=== PATIENT | female | born 1980 | race Caucasian/White ===

== ENCOUNTER 2021-02-06 16:15 | Observation (INO) | payer OTHER ==
[2021-02-06] MEDS ORDERED: Betamethasone Acetate/Betamethasone Sod Phosphate 30 MG/5 ML MDV IM ONE (17:14)
[2021-02-06 18:12] LABS: BLOOD UREA NITROGEN,BUN 17 mg/dL (7.0-18.0); CARBON DIOXIDE,CO2 23.9 mmol/L (21.0-32.0); CHLORIDE,CL 105 mmol/L (98-107); GLUCOSE RANDOM 94 mg/dL (74-106); POTASSIUM,K 3.8 mmol/L (3.5-5.1); SODIUM,NA 139 mmol/L (136-145)
[2021-02-06] MEDS ORDERED: Sodium Chloride 0.9% 10 ML SDV IV PRN (19:07)
[2021-02-06] MEDS ORDERED: Sodium Chloride 0.9% 2.5 ML Syringe FLUSH PRN (19:07)
[2021-02-06] MEDS ORDERED: Sodium Chloride 0.9% 10 ML Syringe FLUSH PRN (19:07)
[2021-02-06] MEDS ORDERED: NIFEdipine 30 MG Tab.ER PO ONE (19:13)
--- NOTE | 2021-02-06 21:02 | US ---
INDICATION: Pre-eclampsia. Check growth, position, biophysical profile. TECHNIQUE: Ultrasound OB pelvis transabdominal. Real-time yan-scale imaging of the fetus was performed. COMPARISON: None. FINDINGS: Sonographic imaging demonstrates a single living intrauterine gestation. heart rate: 142 bpm Orientation: cephalic Placenta: Anterior without evidence of placenta previa or abruption on submitted images. Scattered venous lakes. Amniotic fluid: Subjectively normal with single deepest vertical pocket measuring 3.9 cm. Cervix: Cervical length not measured. BIOPHYSICAL PROFILE: Scores for each category is listed below on a scale of 0-2: -Amniotic fluid: 2 -Flexion/Extension: 2 - Motion: 2 -Breathing Movement: 0 Right anterior intramural fibroid, size 2.1 cm. Biparietal diameter: 7.8 cm, 37 weeks 4 days. Head circumference: 28.9 cm, 31 weeks 6 days Abdominal circumference: 28.9 cm, 33 weeks 0 days Femur length: 6.1 cm, 31 weeks 4 days Estimated weight 1927 grams, corresponding to the 94th percentile. IMPRESSION: 1. Single viable intrauterine with a biophysical profile score of 6 out of a maximum of 8. 2. Clinical gestational age based on LMP 30 weeks 2 days with current ultrasound gestational age 32 weeks 0 days. 3. Estimated weight at the 94th percentile. 4. Normal amniotic fluid. 5. 2.1 cm uterine fibroid. Dictated by Eliu James MD @ 02/06/2021 9:01:[address] Eliu James @ Feb 06 2021 9:01PM
--- NOTE | 2021-02-06 21:29 | HP ---
DATE OF : 1980 PRIMARY CARE PHYSICIAN: Demi Maynard MD CHIEF COMPLAINT: Swelling. HISTORY OF PRESENT ILLNESS: This is a 40-year-old female. She is G1, P0. She presents at 30 weeks and 1 day gestation with a mild headache and sudden increase in swelling. She does not feel normal. She presents to Labor and Delivery for evaluation with blood pressures ranging from 142/81 to 164/97. She denies severe headache or visual changes. She reports normal movement. She has had uncomplicated care except for advanced maternal age and the finding of choroid plexus cyst on screening ultrasound. She is blood type A negative, rubella immune. She did have noninvasive testing which was normal. She has been taking 81 mg aspirin for prevention of preeclampsia. PAST MEDICAL HISTORY: Significant for occasional heart palpitations. PAST SURGICAL HISTORY: In 2005, she had wisdom teeth extracted. GYNECOLOGIC HISTORY: She has no history of abnormal Pap smears. Prior to , she had regular periods. SOCIAL HISTORY: She denies use of tobacco, alcohol, or street drugs. She is an general store manager. She is single, in 2018, currently in a relationship. FAMILY HISTORY: Significant for mother alive with hypertension. Father with heart attack, addiction, and withdrawal. Siblings alive. Maternal grandmother with dementia. Paternal grandfather . Paternal grandmother , emphysema. REVIEW OF SYSTEMS: Positive for mild headache. No visual changes. She denies shortness of breath, chest pain, dyspnea on exertion, palpitations, nausea, vomiting, or diarrhea. She reports good movement. She reports increased swelling as noted in HPI. MEDICATIONS: 1. Prilosec 20 mg daily. 2. 81 mg aspirin daily. 3. vitamin daily. 4. Calcium daily. 5. Stool softener. PHYSICAL EXAMINATION: GENERAL: She is alert and oriented, in no acute distress. VITAL SIGNS: Blood pressures range 142/81 to 164/97. NECK: Supple without lymphadenopathy or thyromegaly. LUNGS: Clear bilaterally. CARDIOVASCULAR: Regular rate without murmur. ABDOMEN: Soft, gravid, and nontender. EXTREMITIES: Show 2+ edema. Reflexes are 1+ and equal without clonus. DIAGNOSTIC DATA: heart tones are 140s, moderate variability with accelerations present. There are no contractions on toco. Laboratory studies include hemoglobin 12.0, hematocrit 35.5, and platelets 147. Protein creatinine ratio 0.2. Uric acid 6.8. AST 16 and ALT 20. ASSESSMENT AND PLAN: 30-1/7 week intrauterine with hypertension. She has been normotensive to this point in the . We will admit with serial laboratory studies. Start betamethasone and proceed with Procardia. I avoided a beta castro due to her low heart rate of 50. She will receive thromboembolic prophylaxis. If she develops any symptoms of severe preeclampsia, she will be started on magnesium. We will proceed with biophysical profile and estimated weight by ultrasound for assessment of well-being, and serial weights and blood pressures. Anticipated observation of at least 24 hours. If worsening symptoms or uncontrolled hypertension in the severe range, we will transfer. KAROL / GORGE /[id number]
[2021-02-07 05:51] LABS: BLOOD UREA NITROGEN,BUN 20 mg/dL (7.0-18.0); CARBON DIOXIDE,CO2 21.3 mmol/L (21.0-32.0); CHLORIDE,CL 104 mmol/L (98-107); GLUCOSE RANDOM 132 mg/dL (74-106); POTASSIUM,K 4.1 mmol/L (3.5-5.1); SODIUM,NA 137 mmol/L (136-145)
--- NOTE | 2021-02-07 09:19 | PCM.SN.2 ---
- Free Text/Narrative Note: Patient seen at bedside. She was admitted yesterday secondary to elevated BP in severe range. She received Procardia 30mg 0 Steriods 1748 EFW: 4lbs 4oz, 1927g, BP: 132/76 . HR: 53 Platelet this AM is normal A/P 40yo @ 30w3d Gestational hypertension with severe features based on severe range BP Plan Spoke with MFM who recommend transfer today , will start Magnessium for seizure prophylaxis and neuroprotection GBS not done yet Patient informed and accepts plan of care
[2021-02-07] MEDS ORDERED: Magnesium Sulfate/Water 4 GM in Premix Bag 1 BAG IV ONE (09:44)
[2021-02-07] MEDS ORDERED: Calcium Gluconate 10% 1 GM/10 ML SDV IV PRN (09:44)
[2021-02-07] MEDS ORDERED: Magnesium Sulfate/Water 4 GM/100 ML BAG ONE (09:45)
[2021-02-07] MEDS ORDERED: Magnesium Sulfate/Water 20 GM/500 ML BAG ONE (09:45)
[2021-02-07] MEDS ORDERED: Magnesium Sulfate/Water 20 GM/500 ML BAG IV SCH (10:05)
[2021-02-07] MEDS ORDERED: Sodium Chloride 0.9% 1,000 ML IV SCH (10:15)
--- NOTE | 2021-02-11 11:42 | US ---
EXAM DATE: 02/06/21 PATIENT'S AGE: 40 Patient: EREN GROVER Facility: [facility] Site . Site : 1980 Study: US-OB Pelvis -02/06/2021 8:48:12 PM Ordering Physician: Tano Ruggiero Final Report: INDICATION: Pre-eclampsia. Check growth, position, biophysical profile. TECHNIQUE: Ultrasound OB pelvis transabdominal. Real-time yan-scale imaging of the fetus was performed. COMPARISON: None. FINDINGS: Sonographic imaging demonstrates a single living intrauterine gestation. heart rate: 142 bpm Orientation: cephalic Placenta: Anterior without evidence of placenta previa or abruption on submitted images. Scattered venous lakes. Amniotic fluid: Subjectively normal with single deepest vertical pocket measuring 3.9 cm. Cervix: Cervical length not measured. BIOPHYSICAL PROFILE: Scores for each category is listed below on a scale of 0-2: -Amniotic fluid: 2 -Flexion/Extension: 2 - Motion: 2 -Breathing Movement: 0 Right anterior intramural fibroid, size 2.1 cm. Biparietal diameter: 7.8 cm, 37 weeks 4 days. Head circumference: 28.9 cm, 31 weeks 6 days Abdominal circumference: 28.9 cm, 33 weeks 0 days Femur length: 6.1 cm, 31 weeks 4 days Estimated weight 1927 grams, corresponding to the 94th percentile. IMPRESSION: 1. Single viable intrauterine with a biophysical profile score of 6 out of a maximum of 8. 2. Clinical gestational age based on LMP 30 weeks 2 days with current ultrasound gestational age 32 weeks 0 days. 3. Estimated weight at the 94th percentile. 4. Normal amniotic fluid. 5. 2.1 cm uterine fibroid. Dictated by Eliu James MD @ 02/06/2021 9:01:40 PM Signed by: Eliu James MD @02/06/2021 9:01:40 PM (Electronic Signature) Report Signed by Proxy. MICHELE
== END 2021-02-07 10:45 ==
LOC: MW.OBCHECK 16:15 → MW.OB 16:18 → MW.OBCHECK 19:00 → MW.OB 19:06
PROVIDERS: ADMIT Obstetrics & Gynecology; ATTEND Obstetrics & Gynecology
DX: O26.893 Other specified pregnancy related conditions, third trimester (principal); R51.9 Headache, unspecified; O16.3 Unspecified maternal hypertension, third trimester; Z3A.30 30 weeks gestation of pregnancy; Z82.49 Family history of ischemic heart disease and other diseases of the circulatory system; Z79.899 Other long term (current) drug therapy; Z20.822 Contact with and (suspected) exposure to COVID-19
CPT/HCPCS: 36415; 59025; 76815; 76815-26; 76819; 76819-26; 80053; 82570; 83615; 84156; 84550; 85027; 85384; 85610; 85730; 86850; 86870; 86900; 86901; 87653; 96372; 96374; A9270-GY; G0378; J0702; J3475; J7030; U0002

== ENCOUNTER 2021-10-14 10:30 | Emergency (ER) | payer OTHER, MEDICAID ==
[2021-10-14] MEDS ORDERED: Lidocaine/EPINEPHrine/Tetracaine Soln 1 ML TOP ONE (12:15)
[2021-10-14] MEDS ORDERED: Sodium Chloride 0.9% 10 ML Syringe FLUSH PRN (12:16)
[2021-10-14] MEDS ORDERED: Sodium Chloride 0.9% 2.5 ML Syringe FLUSH PRN (12:16)
[2021-10-14] MEDS ORDERED: HYDROmorphone 1 MG/ML Syringe IVPUSH ONE (13:25)
[2021-10-14] MEDS ORDERED: Ondansetron 4 MG/2 ML SDV IVPUSH ONE (13:25)
== END 2021-10-14 14:26 | disposition home or self-care (01) ==
LOC: MW.ED 10:30
DX: N61.1 Abscess of the breast and nipple (principal); Z79.82 Long term (current) use of aspirin; Z79.899 Other long term (current) drug therapy
CPT/HCPCS: 10060; 96374; 96375; 99282; J1170; J2405

== ENCOUNTER 2021-10-15 23:51 | Emergency (ER) | payer OTHER, MEDICAID ==
[2021-10-16] MEDS ORDERED: ceFAZolin 1 GM in Premix Bag 1 BAG IV STA (01:29)
[2021-10-16] MEDS ORDERED: HYDROmorphone 1 MG/ML Syringe IVPUSH ONE (01:29)
[2021-10-16] MEDS ORDERED: Ondansetron 4 MG/2 ML SDV IVPUSH ONE (01:48)
[2021-10-16] MEDS ORDERED: Ondansetron 4 MG/2 ML SDV ONE (01:50)
[2021-10-16] MEDS ORDERED: Lidocaine 2% 5 ML SDV INJECT ONE (02:12)
[2021-10-16 02:21] LABS: BLOOD UREA NITROGEN,BUN 11 mg/dL (7.0-18.0); CARBON DIOXIDE,CO2 25.9 mmol/L (21.0-32.0); CHLORIDE,CL 101 mmol/L (98-107); GLUCOSE RANDOM 96 mg/dL (74-106); POTASSIUM,K 3.7 mmol/L (3.5-5.1); SODIUM,NA 136 mmol/L (136-145)
[2021-10-16] MEDS ORDERED: Lidocaine 1% with EPINEPHrine 1:100,000 20 ML MDV ONE (02:21)
== END 2021-10-16 03:03 | disposition home or self-care (01) ==
LOC: MW.ED 23:51
DX: N61.1 Abscess of the breast and nipple (principal); Z86.16 Personal history of COVID-19
CPT/HCPCS: 10060; 36415; 80053; 85025; 96365; 96375; 99283; J0690; J1170; J2405

== ENCOUNTER 2021-10-21 11:02 | Day surgery (SDC) | payer OTHER, MEDICAID ==
[~2021-10-21 11:02] MED LIST: Bupivacaine 25%/EPINEPHrine/PF 30 ML ONE; Clindamycin Phosphate in D5W 600 MG in Premix Bag 1 BAG IV ONE; Lactated Ringers 1,000 ML IV SCH
[2021-10-21] MEDS ORDERED: Lidocaine 2% 5 ML SDV ONE (11:17)
[2021-10-21] MEDS ORDERED: Midazolam 1 MG/ML 2 ML SDV ONE (11:18)
[2021-10-21] MEDS ORDERED: Propofol 200 MG/20 ML SDV ONE ×2 (11:18→12:18)
== END 2021-10-21 14:18 | disposition home or self-care (01) ==
LOC: MW.SDS 11:02
PROVIDERS: ATTEND Surgery
DX: N61.1 Abscess of the breast and nipple (principal); N64.1 Fat necrosis of breast; E66.9 Obesity, unspecified; K21.9 Gastro-esophageal reflux disease without esophagitis; F17.210 Nicotine dependence, cigarettes, uncomplicated; Z68.32 Body mass index [BMI] 32.0-32.9, adult; Z79.899 Other long term (current) drug therapy
CPT/HCPCS: 19101; 81025; 87070; 87075; 87205; J2250; J2704; J3490; J7120

== ENCOUNTER 2022-01-12 08:10 | Emergency (ER) | payer OTHER, MEDICAID ==
[2022-01-12] MEDS ORDERED: Sodium Chloride 0.9% 10 ML Syringe FLUSH PRN (08:27)
[2022-01-12] MEDS ORDERED: Sodium Chloride 0.9% 2.5 ML Syringe FLUSH PRN (08:27)
[2022-01-12 09:31] LABS: BLOOD UREA NITROGEN,BUN 9 mg/dL (7.0-18.0); CARBON DIOXIDE,CO2 24.4 mmol/L (21.0-32.0); CHLORIDE,CL 102 mmol/L (98-107); GLUCOSE RANDOM 99 mg/dL (74-106); SODIUM,NA 137 mmol/L (136-145)
[2022-01-12 10:35] LABS: C. TRACHOMATIS BY PCR NOT DETECTED; N. GONORRHOEAE BY PCR NOT DETECTED
== END 2022-01-12 11:06 | disposition home or self-care (01) ==
LOC: MW.ED 08:10
DX: O03.9 Complete or unspecified spontaneous abortion without complication (principal); R10.31 Right lower quadrant pain; R10.32 Left lower quadrant pain; I10 Essential (primary) hypertension; E66.9 Obesity, unspecified; Z68.36 Body mass index [BMI] 36.0-36.9, adult; Z86.16 Personal history of COVID-19; Z3A.10 10 weeks gestation of pregnancy
CPT/HCPCS: 36415; 76817; 76817-26; 80053; 81001; 84702; 85025; 86850; 86900; 86901; 87480; 87491; 87510; 87591; 87660; 99284-25; J2790

== ENCOUNTER 2022-01-12 19:02 | Emergency (ER) | payer OTHER, MEDICAID ==
[2022-01-12] MEDS ORDERED: Methylergonovine 0.2 MG Tab PO ONE ×4 (19:19→19:20)
== END 2022-01-12 20:22 | disposition home or self-care (01) ==
LOC: MW.ED 19:02
DX: O03.9 Complete or unspecified spontaneous abortion without complication (principal)
CPT/HCPCS: 99283; A9270

== ENCOUNTER 2022-07-30 21:27 | Emergency (ER) | payer OTHER, MEDICAID ==
[2022-07-30] MEDS ORDERED: Sodium Chloride 0.9% 2.5 ML Syringe FLUSH PRN (23:37)
[2022-07-30] MEDS ORDERED: Sodium Chloride 0.9% 1,000 ML IV ONE (23:37)
[2022-07-30] MEDS ORDERED: Sodium Chloride 0.9% 10 ML Syringe FLUSH PRN (23:37)
[2022-07-30] MEDS ORDERED: Dicyclomine 10 MG Cap PO ONE (23:37)
[2022-07-30] MEDS ORDERED: Ketorolac 30 MG/ML SDV IVPUSH ONE (23:37)
[2022-07-30] MEDS ORDERED: Ondansetron 4 MG/2 ML SDV IVPUSH ONE (23:37)
== END 2022-07-31 00:50 | disposition left against medical advice (07) ==
LOC: MW.ED 21:27
DX: Z53.21 Procedure and treatment not carried out due to patient leaving prior to being seen by health care provider (principal)
CPT/HCPCS: 76705; 76705-26

== ENCOUNTER 2022-08-03 12:24 | Emergency (ER) | payer OTHER, MEDICAID ==
[2022-08-03] MEDS ORDERED: Morphine 4 MG/ML Syringe IVPUSH STA (14:09)
[2022-08-03] MEDS ORDERED: Lactated Ringers 1,000 ML IV STA ×2 (14:09→16:50)
[2022-08-03] MEDS ORDERED: Ondansetron 4 MG/2 ML SDV IVPUSH ONE (14:09)
[2022-08-03] MEDS ORDERED: Alum Hydro/Mag Hydro/Simeth XS 15 ML, Lidocaine 2% 5 ML PO ONE ×2 (14:39)
[2022-08-03 14:55] LABS: POTASSIUM,K 3.9 mmol/L (3.5-5.1)
[2022-08-03] MEDS ORDERED: Iopamidol 755 Mg/ML 100 ML Bottle IVPUSH ONE (15:54)
[2022-08-03] MEDS ORDERED: cefTRIAXone 2 GM in Premix Bag 1 BAG IV STA (16:32)
== END 2022-08-03 20:10 ==
LOC: MW.ED 12:24
DX: K80.50 Calculus of bile duct without cholangitis or cholecystitis without obstruction (principal); F17.210 Nicotine dependence, cigarettes, uncomplicated; E66.9 Obesity, unspecified; Z86.16 Personal history of COVID-19; Z20.822 Contact with and (suspected) exposure to COVID-19; Z68.36 Body mass index [BMI] 36.0-36.9, adult
CPT/HCPCS: 36415; 74177; 80053; 80074; 81001; 82550; 83690; 84702; 85025; 85610; 87635; 93005; 96361; 96365; 96375; 99285; A9270; J0696; J2270; J2405; J7120; Q9967; U0002

== ENCOUNTER 2023-04-13 09:53 | Emergency (ER) | payer MEDICAID, OTHER ==
[2023-04-13 10:13] LABS: APPEARANCE,URINE CLEAR; COLOR,URINE YELLOW
[2023-04-13 10:14] LABS: BASOPHILS PERCENT AUTO 0.3 % (0.0-1.5); BILIRUBIN,URINE NEGATIVE (NEGATIVE); EOSINOPHILS ABSOLUTE AUTO 0.3 K/uL (0.0-0.7); EOSINOPHILS PERCENT AUTO 3.5 % (0.0-7.0); GLUCOSE,URINE NEGATIVE (NEGATIVE); HEMATOCRIT 38.6 % (36.0-46.0); HEMOGLOBIN 12.7 g/dL (12.0-16.0); KETONES,URINE NEGATIVE (NEGATIVE); LEUKOCYTE ESTERASE,URINE SMALL (NEGATIVE); LYMPHOCYTES ABSOLUTE AUTO 1.4 K/uL (0.6-2.4); LYMPHOCYTES PERCENT AUTO 19.1 % (16.0-40.0); MEAN CORPUSCULAR HGB CONC 32.9 g/dL (31.0-37.0); MONOCYTES ABSOLUTE AUTO 0.6 K/uL (0.0-0.8); MONOCYTES PERCENT AUTO 7.6 % (0.0-15.0); NEUTROPHILS ABSOLUTE AUTO 5.2 K/uL (1.4-5.7); NEUTROPHILS PERCENT AUTO 69.5 % (48.0-80.0); NITRITE,URINE NEGATIVE (NEGATIVE); NRBC ABSOLUTE 0 K/uL; OCCULT BLOOD,URINE NEGATIVE (NEGATIVE); PLATELET COUNT,PLT 245 K/uL (150-400); PROTEIN,URINE NEGATIVE (NEGATIVE); RED BLOOD CELL COUNT 4.71 M/uL (4.30-5.90); UROBILINOGEN,URINE 0.2 EU/dL (<2.0)
[2023-04-13] MEDS ORDERED: Ketorolac 30 MG/ML SDV IVPUSH STA (10:15)
[2023-04-13] MEDS ORDERED: Sodium Chloride 0.9% 2.5 ML Syringe FLUSH PRN (10:15)
[2023-04-13] MEDS ORDERED: Sodium Chloride 0.9% 1,000 ML IV STA (10:15)
[2023-04-13] MEDS ORDERED: Sodium Chloride 0.9% 10 ML Syringe FLUSH PRN (10:15)
[2023-04-13 10:37] LABS: BACTERIA,URINE FEW (NEGATIVE); EPITHELIAL CELLS,URINE FEW (NONE-FEW); RBC,URINE 0-2 (0-2/HPF)
[2023-04-13 10:48] LABS: ALBUMIN 3.6 g/dL (3.4-5.0); BILIRUBIN TOTAL 0.4 mg/dL (0.2-1.0); CALCIUM 8.6 mg/dL (8.5-10.1); CREATININE 0.8 mg/dL (0.6-1.0); EST CRCL DRUG DOSING (CG) 92.41 mL/min; POTASSIUM,K 3.8 mmol/L (3.5-5.1); PROTEIN TOTAL,TP 7.3 g/dL (6.4-8.2)
[2023-04-13] MEDS ORDERED: Iopamidol 755 MG/ML 500 ML Multipack Bottle IVPUSH ONE (11:56)
== END 2023-04-13 13:56 | disposition home or self-care (01) ==
LOC: MW.ED 09:53
DX: N30.00 Acute cystitis without hematuria (principal); K59.00 Constipation, unspecified; K43.9 Ventral hernia without obstruction or gangrene; E66.9 Obesity, unspecified; Z68.36 Body mass index [BMI] 36.0-36.9, adult; Z86.16 Personal history of COVID-19; Z90.49 Acquired absence of other specified parts of digestive tract; Z98.890 Other specified postprocedural states
CPT/HCPCS: 36415; 74177; 80053; 81001; 81025; 83690; 85025; 87086; 96361; 96374; 99284; J1885; J3490; J7030; Q9967

== ENCOUNTER 2023-10-16 08:56 | Emergency (ER) | payer BC ==
[2023-10-16] MEDS ORDERED: Sodium Chloride 0.9% 1,000 ML IV ONE (09:30)
[2023-10-16 09:56] LABS: BASOPHILS ABSOLUTE AUTO 0.05 K/uL (0.00-0.20); BASOPHILS PERCENT AUTO 0.6 % (0.0-1.0); EOSINOPHILS ABSOLUTE AUTO 0.31 K/uL (0.00-0.45); EOSINOPHILS PERCENT AUTO 3.9 % (0.0-6.0); HEMOGLOBIN 13.4 g/dL (12.0-16.0); IMMATURE GRAN ABSOLUTE AUTO 0.03 K/uL (0.00-0.05); IMMATURE GRAN PERCENT AUTO 0.4 % (0.0-0.4); LYMPHOCYTES ABSOLUTE AUTO 1.69 K/uL (1.00-4.80); LYMPHOCYTES PERCENT AUTO 21.4 % (24.0-44.0); MEAN CORPUSCULAR HEMOGLOBIN 26.4 pg (28.0-32.0); MEAN CORPUSCULAR HGB CONC 32.7 g/dL (32.0-36.0); MEAN CORPUSCULAR VOLUME 80.9 fL (83.0-99.0); MEAN PLATELET VOLUME 10.2 fL (9.4-12.3); MONOCYTES ABSOLUTE AUTO 0.57 K/uL (0.00-0.80); MONOCYTES PERCENT AUTO 7.2 % (0.0-8.0); NEUTROPHILS ABSOLUTE AUTO 5.24 K/uL (1.80-7.70); NEUTROPHILS PERCENT AUTO 66.5 % (41.0-71.0); PLATELET COUNT,PLT 295 K/uL (150-400); RED BLOOD CELL COUNT 5.07 M/uL (4.10-5.30); WHITE BLOOD CELL COUNT,WBC 7.89 K/uL (3.9-11.3)
[2023-10-16 10:23] LABS: BILIRUBIN TOTAL 0.6 mg/dL (0.2-1.0); CARBON DIOXIDE,CO2 26.5 mmol/L (21.0-32.0); CREATININE 0.8 mg/dL (0.6-1.0); EST CRCL DRUG DOSING (CG) 91.47 mL/min; POTASSIUM,K 4.2 mmol/L (3.5-5.1)
[2023-10-16] MEDS ORDERED: Iopamidol 755 MG/ML 500 ML Multipack Bottle IVPUSH STA (11:08)
[2023-10-16 11:45] LABS: APPEARANCE,URINE CLEAR; BILIRUBIN,URINE NEGATIVE (NEGATIVE); COLOR,URINE YELLOW; GLUCOSE,URINE NEGATIVE (NEGATIVE); KETONES,URINE NEGATIVE (NEGATIVE); LEUKOCYTE ESTERASE,URINE NEGATIVE (NEGATIVE); NITRITE,URINE NEGATIVE (NEGATIVE); OCCULT BLOOD,URINE TRACE-INTACT (NEGATIVE); PH,URINE 6.5 (5.0-8.0); PROTEIN,URINE NEGATIVE (NEGATIVE); UROBILINOGEN,URINE 0.2 EU/dL (<2.0)
[2023-10-16 12:00] LABS: BACTERIA,URINE FEW (NEGATIVE); MUCUS,URINE LIGHT (NONE-MOD); SQUAMOUS EPITHELIAL CELLS,UR MODERATE
[2023-10-16] MEDS ORDERED: Magnesium Citrate Solution 296 ML Bottle PO ONE (12:19)
== END 2023-10-16 13:25 | disposition home or self-care (01) ==
LOC: MW.ED 08:56
DX: K64.9 Unspecified hemorrhoids (principal); K59.00 Constipation, unspecified; F17.210 Nicotine dependence, cigarettes, uncomplicated; E66.9 Obesity, unspecified; Z68.37 Body mass index [BMI] 37.0-37.9, adult
CPT/HCPCS: 36415; 74177; 80053; 81001; 83690; 84703; 85025; 96360; 99284; J7030; Q9967

== ENCOUNTER 2024-04-19 07:58 | Day surgery (SDC) | payer BC ==
[~2024-04-19 07:58] MED LIST changes: -Bupivacaine 25%/EPINEPHrine/PF 30 ML ONE; -Clindamycin Phosphate in D5W 600 MG in Premix Bag 1 BAG IV ONE; -Lactated Ringers 1,000 ML IV SCH; +Sodium Chloride 0.9% 10 ML Syringe FLUSH PRN; +Sodium Chloride 0.9% 2.5 ML Syringe FLUSH PRN; +Sodium Chloride 0.9% 20 ML SDV IV PRN
[2024-04-19] MEDS: Lactated Ringers 1,000 ML IV SCH (08:27)
[2024-04-19] MEDS ORDERED: propofoL 50 ML ONE (08:29)
[2024-04-19] MEDS ORDERED: Lidocaine 2% 5 ML SDV ONE (08:34)
== END 2024-04-19 09:58 | disposition home or self-care (01) ==
LOC: MW.SDS 07:58
PROVIDERS: ATTEND Surgery
DX: K63.5 Polyp of colon (principal); K59.09 Other constipation; K43.9 Ventral hernia without obstruction or gangrene; I10 Essential (primary) hypertension; E66.9 Obesity, unspecified; F17.290 Nicotine dependence, other tobacco product, uncomplicated; Z79.899 Other long term (current) drug therapy; Z79.84 Long term (current) use of oral hypoglycemic drugs; Z68.37 Body mass index [BMI] 37.0-37.9, adult
CPT/HCPCS: 45380; 81025; J2704; J7120; 00811; J3490

== ENCOUNTER 2024-07-08 06:49 | Day surgery (SDC) | payer BC ==
[2024-07-08] MEDS: Lactated Ringers 1,000 ML IV SCH (07:18)
[2024-07-08] MEDS ORDERED: ceFAZolin 1 GM Vial ONE (07:22)
[2024-07-08] MEDS ORDERED: Bupivacaine 0.5% 30 ML SDV ONE (07:22)
[2024-07-08] MEDS ORDERED: Midazolam 1 MG/ML 2 ML SDV ONE (07:42)
[2024-07-08] MEDS ORDERED: fentaNYL 100 MCG/2 ML SDV ONE (07:42)
[2024-07-08] MEDS ORDERED: Propofol 200 MG/20 ML SDV ONE (07:43)
[2024-07-08] MEDS ORDERED: Lidocaine 2% 5 ML SDV ONE (07:43)
[2024-07-08] MEDS ORDERED: Ondansetron 4 MG/2 ML SDV ONE (08:16)
[2024-07-08] MEDS ORDERED: Acetaminophen/HYDROcodone 325-5 MG Tab PO PRN (08:34)
[2024-07-08] MEDS ORDERED: Lactated Ringers 1,000 ML IV SCH (08:45)
[2024-07-08] MEDS ORDERED: traMADol 50 MG Tab ONE (09:27)
[2024-07-08] MEDS: traMADol 50 MG Tab PO ONE (09:30)
== END 2024-07-08 09:55 | disposition home or self-care (01) ==
LOC: MW.SDS 06:49
PROVIDERS: ATTEND Surgery
DX: L02.213 Cutaneous abscess of chest wall (principal); L72.0 Epidermal cyst; I10 Essential (primary) hypertension; L08.9 Local infection of the skin and subcutaneous tissue, unspecified; D50.9 Iron deficiency anemia, unspecified; E66.812 Obesity, class 2; K21.9 Gastro-esophageal reflux disease without esophagitis; K64.9 Unspecified hemorrhoids; F17.290 Nicotine dependence, other tobacco product, uncomplicated; H10.029 Other mucopurulent conjunctivitis, unspecified eye; R73.03 Prediabetes; K43.9 Ventral hernia without obstruction or gangrene; Z68.35 Body mass index [BMI] 35.0-35.9, adult; Z90.49 Acquired absence of other specified parts of digestive tract; Z98.890 Other specified postprocedural states; Z87.59 Personal history of other complications of pregnancy, childbirth and the puerperium; Z79.899 Other long term (current) drug therapy
CPT/HCPCS: 10061; 81025; 87070; 87075; 87205; A9270; J0665; J2250; J2405; J2704; J3010; J7120; J0690; J3490